=== PATIENT | female | born 1970 | race Caucasian/White ===

== ENCOUNTER 2025-05-18 08:29 | Emergency (ER) | payer MEDICARE, SELFPAY ==
--- OUTSIDE RECORDS SUMMARY | 2022-04-02 06:15 | XMS_ITS | Continuity of Care Document ---
Author Organization Formerly [facility] Address [address] [place] [address] Phone Care Team Providers Care Parish Visitor Name Role Phone Adrianne Edmondson Unavailable Unavailable Allergies, Adverse Reactions, Alerts Substance Reaction Status Criticality No Known Allergies Active No Inform ation Medications Medication Instructions Dosage Effective Dates (start - stop) Status Comments promethazine-DM 6.25 mg-15 mg/5 mL oral syrup take 5 milliliter by oral route every 6 hours as needed for Congestion And Cough 5.00 milliliter - Active Ventolin HFA 90 mcg/actuation aerosol inhaler inhale 2 puff by inhalation route every 4 - 6 hours as needed - Active ibuprofen 800 mg tablet take 1 tablet by oral route 3 times a day as needed for pain; take with food - Active docusate sodium 100 mg capsule take 1 capsule by oral route 2 times a day as needed for constipation - Active Problems Condition Type Effective Dates (start - stop) Clini christian Status Comments No Known Problems Procedures Procedure Date OFFICE/OUTPATIENT VISIT, EST Advance Directives Directive Yes / No Effective Date File Name No Information Encounters Encounter Description Practice Location Reason(s) For Visit Diagnoses Date Provider OFFICE/OUTPAT IENT VISIT, EST Formerly [facility], [address], [place], [id number], [place] tel:[phone] [facility] Follow Up of COVID-19 (chief complaint) COVID-19Educated about COVID-19 virus infection [address] Eve Silver. [address], [id number] [place], [address], [place]. tel: [phone] [facility], [address], [place], [id number], [place] tel: [phone] [facility] COVID-19 (chief complaint) COVID-19Educated about COVID-19 virus infectionContact w and exposure to oth viral communicable diseasesEncounter for screening for cancer of colonEncounter for screening mammogram for cancer of breast 2 Eve Lockettet. [address], [id number] [place], [address], [place]. tel: [phone] [facility]ly [facility], [address], [place], [id number], [place] tel: [phone] [facility] Discuss results from hospital (chief complaint) Positive RPR test 2 Eve Lockettet. [address], [id number] [place], [address], . tel: [phone] [facility], [address], [place], [id number], [place] tel: [phone] [facility] Er follow up (chief complaint) Body mass index (BMI) 36.0-36.9, adultSkin rashHospital discharge follow-upChest pain, unspecified type 2 Eve Francepreet. [address], [id number] [place], [address], [place]. tel: [phone] [facility], [address], [place], [id number], [place] tel: [phone] [facility] Abnormal mammogram of right breast 9 No Information Formerly [facility], [address], [place], [id number], [place] tel: [phone] [facility] Bipolar disorder, unspecifiedCannabis dependence, uncomplicatedBorderline Personality Disorder 9 Jelani Villagomez. [address], [id number] [place], [id number], [place]. tel:+ [facility], [address], [place], [id number], tel: [facility] Abnormal mammogram of right breast 9 No Information [facility], [address], [place], [id number], tel: [facility] Bipolar disorder, unspecifiedCannabis dependence, uncomplicatedBorderline Personality Disorder Jelani Dahlia. [address], [id number] [place], [id number], [place]. tel: [facility], [address], [place], [id number], tel: [facility] Preventive exam (chief complaint)M RI results (chief complaint)f eet pain (chief complaint)f /u mammogram (chief complaint)w eight (chief complaint) Well adult examPlantar fasciitis, bilateralChronic midline low back pain, with sciatica presence unspecifiedAbnormal mammogram of right breastObesity, unspecified classification, unspecified obesity type, unspecified whether serious comorbidity present 9 No Information [facility], [address], [place], [id number], tel: [facility] Bipolar disorder, unspecifiedCannabis dependence, uncomplicatedBorderline Personality Disorder 9 Jelani [place]. [address], [id number] [place], [place], [id number], [place]. tel: [facility], [address], [place], [id number], [place] tel: [facility] Bipolar disorder, unspecifiedCannabis dependence, uncomplicatedBorderline Personality Disorder 9 Jelani [place]. [address], [id number] [place], [id number], [place]. tel: [facility], [address], [place], [id number], tel: [facility] Abnormality of right breast on screening mammogram 9 No Information [facility], [address], [place], [id number], tel: [phone] [facility] Bipolar disorder, unspecifiedCannabis dependence, uncomplicatedBorderline Personality Disorder Nov- [facility]. [address], [id number] [place], [place], [id number], . tel: [facility], [address], [place], [id number], [place] tel: [facility] Bipolar disorder, unspecifiedCannabis dependence, uncomplicatedBorderline Personality Disorder Nov- [facility]. [address], [id number] [place], [place], [id number], [place]. tel: [facility], [address], [place], [id number], tel: [facility] f/u leg and back pain (chief complaint)f /u bipolar (chief complaint) Chronic midline low back pain, with sciatica presence unspecifiedChronic pain of both lower extremitiesBipolar disorder, unspecifiedAbnormal urinalysisHyperlipidemia , unspecified hyperlipidemia typeStress incontinence in femaleBreast cancer screeningCannabis dependence, uncomplicated Nov- 9 No Information [facility], [address], [place], [id number], tel: [facility] Bipolar disorder, unspecifiedCannabis dependence, uncomplicated Nov- [place] Dahlia. [address], [id number] [place], [id number], [place]. tel: [facility], [address], [place], [id number], [place] tel: [facility] Trouble Walking (chief complaint)c onstipation (chief complaint)b ipolar (chief complaint) PolyarthralgiaChronic midline low back pain, with sciatica presence unspecifiedBipolar affective disorder, current episode mixed, current episode severity unspecified Nov 9 No Information [facility], [address], [place], [id number], tel: [phone] [facility] Follow Up of lungs (chief complaint)i gunner toenail (chief complaint) Ingrown toenailChronic obstructive pulmonary disease, unspecified COPD type 7 No Information [facility], [address], [place], [id number], tel: [phone] [facility] trouble breathing (chief complaint) Acute bronchitis with bronchospasmTobacco use disorder No Information Family History Family Member Type Diagnosis Age At Onset No Information Immunizations Vaccine Date Status Comments TDAP refused Source: New Imm unization Record Flu 6mo-64 yrs refused Source: New I mmunization Record Payers Payer name Insurance type Covered green party ID Authoriza tion(s) Medicare [place] [id number] [facility] [id number] Social History Type Description Quantity Date Captured Comments Alcohol Use Details 4 beers rarely Caffeine Use Details soda and tea Occasionally per day Mar Tobacco Use Status Occasional cigarette smoker Smoking Status Heavy tobacco smoker Sex Female Sexual Orientation Straight or heterosexual Gender Identity Oywown-xg-Wmia (FTM)/Transgender Male/Trans Man Chief Complaint And Reason For Visit From encounter dated '04/02/2022 11:15'. Follow Up of COVID-19 (chief complaint). Description: The symptoms are reported as being mild. The symptoms occur daily. The client states the symptoms are acute. COVID-19 :Patient did not take Paxlovid. Patient has headache, cough productive, fatigue. Condition improved but not resolved .Denied any SOB,CP . Patient alert and oriented not in any acute distress. Plan Of Treatment Date Type Action Status Referral Ordered: SCR MAMMO BI INCL CAD Appointment date/timeframe: 06/11/2022 ordered Referral Ordered: Automatic Lump Making Machine Tender (related to Obesity, unspecified classification, unspecified obesity type, unspecified whether serious comorbidity present) ordered Referral Ordered: Referrals: Automatic Lump Making Machine Tender. Consult Appointment date/timeframe: 2 Weeks ordered Referral Ordered: Referrals: Diagnostic Radiology Appointment date/timeframe: 07/13/2019 ordered Referral Ordered: Diagnostic Radiology (related to Abnormality of right breast on screening mammogram) ordered Referral Ordered: Diagnostic Radiology (related to Abnormality of right breast on screening mammogram) ordered Referral Ordered: Referrals: Gynecology. Evaluate and treat Appointment date/timeframe: 01/03/2019 ordered Referral Ordered: Referrals: [facility]. Diagnostic testing Appointment date/timeframe: 12/25/2018 ordered Referral Ordered: Referrals: Diagnostic Radiology. Diagnostic testing Appointment date/timeframe: 12/25/2018 ordered Referral Ordered: X-RAY EXAM OF LOWER SPINE lumbar spine ordered Referral Ordered: Referrals: Podiatry. Evaluate and treat Appointment date/timeframe: 1 Week ordered History Of Present Illness Encounter Date Complaint History Of Prese nt Illness Follow Up of COVID-19 The sympto ms are reported as being mild. The symptoms occur daily. The client states the symptoms are acute. COVID-19 :Patient did not take Paxlovid. Patient has headache, cough productive, fatigue. Condition improved but not resolved .Denied any SOB,CP . Patient alert and oriented not in any acute distress. COVID-19 The symptoms beg an 2 days ago. The symptoms have remained unchanged. The symptoms occur constantly. The client presents with arthralgia, chills, cough, fatigue, fever, headache and pharyngitis. The client does not present with abdominal pain, anorexia, back pain, diarrhea, earache, generalized weakness, lymphadenopathy, myalgia, nausea or vomiting. The client denies change in appetite, change in sleep cycle, constipation, diaphoresis, dizziness, dyspnea, hoarseness, increased abdominal girth, jaundice, lightheadedness, malaise, melena, neck stiffness, pruritus, rash, reduced urine output, somnolence, weight gain and weight loss. Discuss results from [facility] symptoms are reported as being mild. The symptoms occur daily. The client states the symptoms are acute. Lab results : RPR with reflex titer - Reactive Patient is treated with Doxycycline Er follow up Patient was seen in [facility] on 12/30/21 for rash on her body , had hx of Michel mountain fever . Per patient MD treating her syphilis as she recently was with someone with similar rash. Taking medication as ordered . Patient was seen again in [facility] ER on 01/01/22 for SOB and CP. Xray and CT of chest was done and was negative per patient , no records present. Patient denied any CP at this time.Rash has been improving - taking doxycycline as ordered .Requesting records from [facility] MRI results hx of low back p ain with occasional radiation to legsMRI lumbar spine showed multilevel disc dessication but no foraminal and spinal stenosis feet pain hx of pain on bi lateral soles of her feet; worse with first instep, or when she is resting after using her feet for a while; it is burning f/u mammogram screening mammo showed right breast abnormality, diagnostic and US done showed benign lesion but neisha 6 mo f/u; pt denies pain or felt lumps weight difficulty losin g weight and keeping it lost; she is trying to exercise and eat healthier to no avail Preventive exam Last LMP was . Negative for: breast discharge, breast lump(s) and breast pain. Associated symptoms include urinary incontinence. Pertinent negatives include abnormal vaginal bleeding, urinary urgency, vaginal discharge and vaginal itching. Diet Regular.The patient states her exercise frequency is never. The patient does use tobacco. She does drink alcohol. 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, started on her feet and worked its way up her legs and lower backlumbar x-ray normallabs WNL except for mild elevation of TC and urinalysis abnormal - she went to ER shortly after being seen in clinic last visit and was dx UTI and rx'd nitrofurantoin - she is better nowreports stress incontinence, chronic f/u bipolar hx of bipolar, u sed to take lexapro but not currently; seeing now [facility] user and does not plan to quit Trouble Walking pain started on bilateral soles of her feet 9 months ago, then it has spread up to her ankles, then legs, knees, thighs, hips and lower back; no injury; no redness or swelling; she has difficulty walking due to this; she recalls getting a wasp bite on her right upper back that was a big circular swelling prior to all her joint pains; she did not seek treatment constipation Additional infor christian: c/o constipation x 1 wk; not able to go do BM; usually gets diarrhea; no abdominal pain; no blood in stool; no hemorrhoids; feels bloated but no abdominal pain. bipolar hx of bipolar, o n lexapro 40 mg once a day; feels like it is not working anymore; she has not seen or Psych ingrown toenail requesting podia try referral for painful ingrown rigth big toe nail Follow Up of lungs hx of COPD, h ad an exacerbation a week ago and was treated w/ zpak and oral prednisone; she is feeling better; she continues to smoke trouble breathing The symptoms b jhoan 2 weeks ago. productive cough x 2 weeks with chest tightness and wheezing; no feverstates she always gets pneumonia once a yearhx of COPD, only on ventolinsmokes 5-25 cig/daypmhx: allergiesmeds: did not bring bottles/list, but says she is on control, lexapro, ventolin, nasal spray, claritin Instructions Date Instruction Additional Infor christian Symptoms improved bu t not resolved Cough medication as ordered . Encouraged fluids and rest Okay to go back to work on 04/05/22ER precautions discussed RTC as needed. Related to COVID-19 Paxlovid as ordered. ER precautions discussed . Encouraged fluids and rest. Follow up with PCP. Related to COVID-19 Finish treatment as ordered Notify partner Related to Positive RPR test COndition resolved Related to Ch est pain, unspecified type Take medication as o rdered . Condition improved Related to Skin rash Exercise promotion: stretching R elated to Body mass index [BMI] 36.0-36.9, adult Dietary needs education Related to Body mass index [BMI] 36.0-36.9, adult Assessments Type Assessment Date assessment COVID-19 assessment Educated about COVID-19 virus in fection Mental Status Date Cognitive Assessment Orientation - [place] ed to time, place, person, situation.
--- NOTE | ~2025-05-18 | XR_ITS ---
Lumbar spine series Indication: Lower back pain, nontraumatic Comparison: None Technique: 3 views lumbar spine Findings: 5 nonrib-bearing lumbar-type vertebral bodies. No acute fracture. No listhesis. Vertebral bodies normal height. Disc spaces maintained. Minimal degenerative changes. SI joints congruent. Sacrum intact. IMPRESSION: 1. No acute findings. Reviewed, dictated and finalized at location R. IMPRESSION: 1. No acute findings.
[2025-05-18 08:40] VITALS: BP 139/77; PULSE 93; RESP 20; TEMP 36.6; O2SAT 98
--- NOTE | 2025-05-18 10:15 | ED.BACK ---
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 She denies trauma, radiation of pain, fever, chills, nausea, vomiting or urinary symptoms. History of hypertension and sleep apnea Related Data Allergies Allergy/AdvReac Type Severity Reaction Status Date / Time No Known Allergies Allergy Verified 05/18/25 08:46 Review of Systems Review of Systems: All systems reviewed & are unremarkable except as noted in HPI and below Exam Narrative: General appearance: Well-developed, well-nourished Skin: Normal color Head: Normocephalic, nontraumatic Eyes: Clear conjunctiva ENT: Oropharynx normal, ears normal, nose normal Neck: Supple, nontender Chest and respiratory: Airway patent, no respiratory distress, no accessory muscle use Heart: Regular rate/rhythm Abdomen: Soft, nontender, no organomegaly, quiet bowel sounds Vascular: Normal peripheral pulses, normal capillary refill. Musculoskeletal: Severe tenderness across lumbar area, no bruises, no swelling, no rash, limited range of motion at the lumbar area because of pain Neurologic: Alert and oriented ?3, PLATE HANGER is normal as tested, no gross motor deficit Course Vital Signs Vital signs: Vital Signs Temperature 36.6 C 05/18/25 08:40 Pulse Rate 93 05/18/25 08:40 Respiratory Rate 05/18/25 08:40 Blood Pressure 139/77 05/18/25 08:40 Pulse Oximetry 98 05/18/25 08:40 Oxygen Delivery Room Air 05/18/25 08:40 Temperature 36.6 C 05/18/25 08:40 Pulse Rate 93 05/18/25 08:40 Respiratory Rate 05/18/25 08:40 Blood Pressure 139/77 05/18/25 08:40 Pulse Oximetry 98 05/18/25 08:40 Oxygen Delivery Room Air 05/18/25 08:40 MDM - Back Pain/Injury MDM Narrative Medical decision making narrative: 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 No acute findings. Critical Care Time Critical Care Time Critical Care Time: No Discharge Plan Discharge Clinical Impression: Lower back pain Patient Disposition: Home Condition: Stable Instructions: Acute Low Back Pain (ED) Additional Instructions: Return if symptoms are worsening , call your family physician for appointment, take Tylenol as as needed for aches and pain, continue home medications. Massage Heating pad Lower back exercise Patient Language: Citizen Of [place] Prescriptions: New diclofenac sodium 75 mg tablet,delayed release (DR/EC) 75 mg PO BID PRN (Reason: pain) Qty: 14 0RF cyclobenzaprine 10 mg tablet 10 mg PO TID PRN (Reason: muscle spasm) Qty: 20 0RF Follow-up/Referrals: PHYSICIAN NOT ON STAFF,NONSTAFF [Primary Care Provider]
--- OUTSIDE RECORDS SUMMARY | 2025-05-18 11:06 | XMS_ITS | Clinical Summary ---
Author Organization [facility] Address [address] [place] [address] Phone Care Team Providers Care Electricity Trader Name Role Phone JeffreyNima Lyn ANTON Primary Care Provider [phone] Allergies No known active allergies Medications lidocaine (Xylocaine) 2 % solution Apply to the affected dental pain region with a Q-tip every 2 hours as needed for pain. 20 mL 04/27/20 25 Active losartan (Cozaar) 50 mg tablet TAKE 1 TABLET BY MOUTH IN THE MORNING 90 tablet 05/07/20 25 Active losartan (Cozaar) 50 mg tablet TAKE 1 TABLET BY MOUTH IN THE MORNING 90 tablet 01/30/20 25 025 Discontinued amoxicillin-pot clavulanate (Augmentin) 875-125 mg tablet Take 1 tablet by mouth in the morning and at bedtime for 10 days. 20 tablet 04/27/20 25 025 diclofenac (Voltaren) 50 mg EC tablet Take 1 tablet (50 mg) by mouth in the morning, afternoon, and at bedtime for 7 days. Do not crush, chew, or split. 21 tablet 04/27/20 25 025 triamcinolone (Nasacort) 55 mcg nasal inhaler Administer 2 sprays into each nostril in the morning for 10 days. Obtain saline nasal spray spray in each nostril then blow nose before using this medication. 16.5 g 04/27/20 25 025 Active Problems Problem Noted Date Diagnosed Date Other viral warts 03/14/2025 Primary hypertension 11/09/2023 Nonintractable headache 01/13/2023 Resolved Problems Problem Noted Date Diagnosed Date Resolved Date PTSD (post-traumatic stress disorder) 12/13/2022 10/14/2023 Encounters Date Type Department Care Team Description 05/09/2025 Refill [facility] [address] [place] [address] Nima Jeffrey APRN 05/07/2025 Refill [facility] [address] [place] [address] Nima Jeffrey APRN 04/27/2025 2:45 PM CDT Office Visit [facility] [address] [place] [address] Joseph Cole APRN Dental abscess (Primary Dx); Chronic dental pain 03/14/2025 10:15 AM CDT Office Visit [facility] Internal Medicine, Pediatrics and Adult Care [address], [address] [place] [address] Nima Jeffrey APRN Actinic keratosis (Primary Dx); Other viral warts from Last 3 Months Immunizations Immunization Administration Dates Next Due Hep B, Unspecified 02/06/2008,01/02/2008 Hep B, adult 09/30/2008 MMR 12/09/2023 Tdap 12/09/2023 Family History Medical History Relation Name Comments Colon cancer Maternal Grandfather No Known Problems Mother Breast cancer Paternal Grandmother Relation Name Status Comments Maternal Grandfather Mother Paternal Grandmother Social History Tobacco Use Types Packs/Day Years Used Date Smoking Tobacco: Former Cigarettes Passive Smoke Exposure: Past Smokeless Tobacco: Never Tobacco Cessation:Counseling Given: Not Answered Alcohol Use Standard Drinks/Week Comments Not Currently 0 (1 standard drink = 0.6 oz pur e alcohol) [id number] Health Literacy Answer Date Recor ded How often do you need to hav e someone help you when you read instructions, pamphlets, or other written material from your doctor or pharmacy? Never 10/26/2024 [facility] Utilities Answer Date Recorded In the past 12 months has e electric, gas, oil, or water company threatened to shut off services in your home? No 10/26/2024 Social Connection and Isolation Panel Answer Date Recorded In a typical week, how many times do you talk on the phone with family, friends, or neighbors? More than three times a week 04/05/2024 How often do you get togethe r with friends or relatives? Patient declined 04/05/2024 How often do you attend chur ch or adventism services? Never 04/05/2024 Do you belong to any clubs o r organizations such as baptism groups, unions, fraternal or athletic groups, or school groups? No 04/05/2024 How often do you attend meet ings of the clubs or organizations you belong to? Never 04/05/2024 Are you , , di vorced, , never , or living with a partner? 04/05/2024 AUDIT-C Answer Date Recorded Q1: How often do you have a drink containing alc ohol? Monthly or less 10/26/2024 Q2: How many drinks containi ng alcohol do you have on a typical day when you are drinking? 1 or 2 10/26/2024 Q3: How often do you have si x or more drinks on one occasion? Never 10/26/2024 Overall Financial Resource Strain (CARDIA) Answe r Date Recorded How hard is it for you to pa y for the very basics like food, housing, medical care, and heating? Not hard at all 10/26/2024 PHQ-2 Answer Date Recorded Patient Health Questionnaire-2 Score 0 12/11/2024 [facility] - Occupational Stress Questionnaire Answer Date Recorded Do you feel stress - tense, restless, nervous, or anxious, or unable to sleep at night because your mind is troubled all the time - these days? Not at all 10/26/2024 Exercise Vital Sign Answer Date Recorde d On average, how many days pe r week do you engage in moderate to strenuous exercise (like a brisk walk)? 0 days 10/26/2024 On average, how many minutes do you engage in exercise at this level? 0 min 10/26/2024 Hunger Vital Sign Answer Date Recorded Within the past 12 months, y ou worried that your food would run out before you got the money to buy more. Never true 10/26/19 25 Within the past 12 months, t he food you bought just didn't last and you didn't have money to get more. Never true 10/26/2024 [facility] - Transportation Answer Date Re corded In the past 12 months, has l ack of transportation kept you from medical appointments or from getting medications? No 03/2024 In the past 12 months, has l ack of transportation kept you from meetings, work, or from getting things needed for daily living? No 04/05/2024 Housing Stability Vital Sign Answer Jean Carlos e Recorded In the last 12 months, was t here a time when you were not able to pay the mortgage or rent on time? Yes 04/05/2024 In the past 12 months, how m any times have you moved where you were living? 2 04/05/2024 At any time in the past 12 m [facility], were you homeless or living in a chcf (including now)? Yes 04/05/2024 [facility] - Housing/Utilities Answer Date Re corded Do you have housing? Yes 10/26/2024 Are you worried about losing your housing? No 10/26/2024 Within the past 12 months, h ave you or your family members you live with been unable to get utilities (heat, electricity) when it was really needed? No 10/26/2024 [facility] - Transportation Answer Date Record ed In the past 12 months, has l ack of reliable transportation kept you from medical appointments, meetings, work or from getting things needed for daily living? No 10/26/2024 [facility] - Personal Safety Answer Date Recor ded How often does anyone, thais doss family and friends, physically hurt you? Never 10/26/2024 How often does anyone, thais doss family and friends, insult or talk down to you? Never 10/26/2024 How often does anyone, thais doss family and friends, threaten you with harm? Never 10/26/2024 How often does anyone, thais doss family and friends, scream or curse at you? Never 10/26/2024 [facility] - Social Connections Answer Date Re corded If for any reason you need h elp with day-to-day activities such as bathing, preparing meals, shopping, managing finances, etc., do you get the help you need? I don't need any help 10/26/2024 How often do you feel lonely or isolated from those around you? Never 10/26/2024 Comments No Sex and Gender Information Value Date Recorded Sex Assigned at Female 07/05/2022 9:05 PM MANAGER PULMONARY Legal Sex Female 9:05 PM MANAGER PULMONARY Gender Identity Not on file Sexual Orientation Not on file Last Filed Vital Signs Vital Sign Reading Time Taken Comments Blood Pressure 138/72 04/27/2025 2:58 PM CDT Pulse 81 04/27/2025 2:58 PM CDT Temperature 36.6 C (97.9 F) 04/27/2025 2:58 PM CDT Respiratory Rate 14 04/27/2025 2:58 PM CDT Oxygen Saturation 100% 04/27/2025 2:58 PM CDT Inhaled Oxygen Concentration - - Weight 119.8 kg (264 lb 1.8 oz) 04/27/2025 2:58 PM CDT Height 167.6 cm (5' 6) 04/27/2025 2:58 PM CDT Body Mass Index 42.63 04/27/2025 2:58 PM CDT Plan of Treatment Upcoming Encounters Date Type Department Care Team (Late st Contact Info) Description 12/05/2025 7:50 AM CDT Lab [facility] [address] [place] [phone] 12/12/2025 11:00 AM CDT Office Visit [facility] [address] [place] [phone] Nima Jeffrey, SLOANE [address] [place] [phone] Health Maintenance Due Date Last Done Comments CT Colonography 1972 Colonoscopy 1972 Colorectal Cancer Screening 1972 FIT-DNA 1972 FOBT 1972 Sigmoidoscopy 1972 Zoster Vaccines (1 of 2) 01/18/2022 Mammogram 01/01/2025 01/02/2024 COVID-19 Vaccine ( season) 2025 Influenza Vaccine (#1) 2025 Diabetes Screening 12/10/2025 12/10/2024, 0 12/10/2024, 12/09/2023, Additional history exists Depression Screening 12/11/2025 12/11/2024 Annual Wellness Visit (AWV) 01/10/2026 12/11/2024 Pap Smear 12/08/2026 12/09/2023 Cervical Cancer Screening 12/08/2028 HPV/Cotest 12/08/2028 12/09/2023 Lipid Panel 12/10/2029 12/10/2024, 12/09/2023 DTaP/Tdap/Td Vaccines (2 - Td or Tdap) 12/08/2033 12/09/2023 Hepatitis B Vaccines Completed 09/30/2008, 02/06/2008, 01/02/2008 HIV Screening Completed 12/09/2023 Hepatitis C Screening Completed 12/09/2023 MMR Vaccines Completed 12/09/2023 HIB Vaccines Aged Out No longer eligi ble based on patient's age to complete this topic HPV Vaccines Aged Out No longer eligi ble based on patient's age to complete this topic Hepatitis A Vaccines Aged Out No long er eligible based on patient's age to complete this topic IPV Vaccines Aged Out No longer eligi ble based on patient's age to complete this topic Meningococcal B Vaccine Aged Out No l onger eligible based on patient's age to complete this topic Meningococcal Vaccine Aged Out No harris nelida eligible based on patient's age to complete this topic RSV Vaccine: Pediatrics < 20 Months Aged Out No longer eligible based on patient's age to complete this topic Rotavirus Vaccines Aged Out No longer eligible based on patient's age to complete this topic Procedures Procedure Name Priority Date/Time Associated Diagnosis Comments COMPREHENSIVE METABOLIC PANEL Routine 12/10/2024 8:19 AM CDT Hypertension, unspecified type Screening for diabetes mellitus (DM) Iron deficiency anemia, unspecified iron deficiency anemia type LIPID PANEL Routine 12/10/2024 8:19 AM CDT Hypertension, unspecified type Screening for diabetes mellitus (DM) Iron deficiency anemia, unspecified iron deficiency anemia type MA 3D SCREENING BILATERAL Routine 01/02/2024 1:35 PM CDT Encounter for screening mammogram for malignant neoplasm of breast HEPATITIS C ANTIBODY Routine 12/09/2023 9:54 AM CDT History of syphilis Unprotected sexual intercourse HIV 1/2 SCREEN REFLEX TO CONFIRM Routine 12/09/2023 9:54 AM CDT History of syphilis Unprotected sexual intercourse PAP SMEAR AND HPV MRNA E6/E7 REFLEX HPV 16, 18/45 Routine 12/09/2023 9:12 AM CDT Well woman exam with routine gynecological exam from Last 3 Months or Most Recently Relevant to Health Maintenance Results * (ABNORMAL) Lipid Panel (12/10/2024 8:19 AM CDT) Pathologist [facility] Cholesterol 182 <=200 mg/dL LAB CHEMISTRY METHOD 12/10/2024 10:24 AM CDT [facility] Comment: < 200: Low Risk 200 - 239: Moderate Risk > OR = 240: High Risk Triglycerides 166(H) <=150 mg/dL LAB CHEMISTRY METHOD 12/10/2024 10:24 AM CDT [facility] HDL 52 >=50 mg/dL LAB CHEMISTRY METHOD 12/10/2024 10:24 AM CDT [facility] LDL Direct 117(H) <=100 mg/dL LAB CHEMISTRY METHOD 12/10/2024 10:24 AM CDT [facility] Comment: Optimal <100 mg/dl Near optimal/above optimal 100 - 129 mg/dl Borderline high 130 - 159 mg/dl High 160 - 189 mg/dl Very high >190 mg/dl Chol/HDL Ratio 3.5 0.0 - 5.0 LAB CHEMISTRY METHOD 12/10/2024 10:24 AM CDT [facility] Non HDL Cholesterol 130(H) 90 - 129 mg/dL LAB CHEMISTRY METHOD 12/10/2024 10:24 AM CDT [facility] Blood Venous blood specimen / Unknown Venipuncture / Unknown 12/10/2024 8:19 AM CDT 12/10/2024 8:19 AM CDT us Nima Jeffrey APRN LAB BLOOD ORDERABLES Final Re sult [facility] [address] [place] [address], * (ABNORMAL) Comprehensive Metabolic Panel (12/10/2024 8:19 AM [facility]) [facility] Sodium 139 136 - 145 mmol/L LAB CHEMISTRY METHOD 12/10/2024 10:24 AM [facility] Potassium 4.2 3.4 - 5.1 mmol/L LAB CHEMISTRY METHOD 12/10/2024 10:24 AM [facility] Chloride 105 98 - 109 mmol/L LAB CHEMISTRY METHOD 12/10/2024 10:24 AM [facility] CO2 25 20 - 31 mmol/L LAB CHEMISTRY METHOD 12/10/2024 10:24 AM [facility] Anion Gap 9 <=15 mmol/L LAB CHEMISTRY METHOD 12/10/2024 10:24 AM [facility] BUN 16 9 - 23 mg/dL LAB CHEMISTRY METHOD 12/10/2024 10:24 AM [facility] Creatinine 0.75 0.50 - 1.30 mg/dL LAB CHEMISTRY METHOD 12/10/2024 10:24 AM [facility] Glucose 89 74 - 106 mg/dL LAB CHEMISTRY METHOD 12/10/2024 10:24 AM [facility] Calcium 9.5 8.3 - 10.6 mg/dL LAB CHEMISTRY METHOD 12/10/2024 10:24 AM [facility] AST 44(H) <=34 U/L LAB CHEMISTRY METHOD 12/10/2024 10:24 AM [facility] ALT (SGPT) 87(H) 10 - 49 U/L LAB CHEMISTRY METHOD 12/10/2024 10:24 AM [facility] Alkaline Phosphatase 91 46 - 116 U/L LAB CHEMISTRY METHOD 12/10/2024 10:24 AM [facility] Total Protein 7.2 5.7 - 8.2 g/dL LAB CHEMISTRY METHOD 12/10/2024 10:24 AM [facility] Albumin 4.1 3.4 - 5.0 g/dL LAB CHEMISTRY METHOD 12/10/2024 10:24 AM [facility] Total Bilirubin 0.3 0.2 - 1.2 mg/dL LAB CHEMISTRY METHOD 12/10/2024 10:24 AM [facility] eGFR 96 >=60 mL/min/1. 73m*2 LAB CHEMISTRY METHOD 12/10/2024 10:[address] [facility] Comment:Calculation based on the Chronic Kidney Disease Epidemiology Collaboration (CKD-EPI) equation refit without adjustment for race Corrected Calcium LAB CHEMISTRY METHOD 12/10/2024 10:[address] [facility] Comment:Not Calculated Blood Venous blood specimen / Unknown Venipuncture / Unknown 12/10/2024 8:19 AM CDT 12/10/2024 8:19 AM CDT Nima Nicholson Wojciech ANTON LAB BLOOD ORDERABLES Final Re sult [facility] [address] [place] [address], * MA 3D Screening Bilateral (01/02/2024 1:35 PM CDT) Anatomical Region Laterality Modality Breast Bilateral Mammography 01/02/2024 4:37 PM CDT Impressions 01/02/2024 4:39 PM CDT No localizing signs of malignancy. BI-RADS: 2- Benign RECOMMENDATION: Routine Screening Mammogram in 1 Year RISK: Estimated lifetime breast cancer risk: Average (risk between 10%-15%, as per the Tyrer-Cuzick/TITO model) A result letter regarding findings and recommendations will be mailed. Narrative 01/02/2024 4:39 PM CDT MA 3D Screening Bilateral INDICATION: Screening mammogram TECHNIQUE: Bilateral craniocaudal and mediolateral oblique tomosynthesis imaging were obtained and reviewed with computer-aided detection. Synthesized 2D images were generated. COMPARISON: This is a new baseline study. FINDINGS: BREAST DENSITY: A: The breasts are almost entirely fatty. There are no suspicious clusters of microcalcifications. There are no suspicious spiculated masses. There is no evidence of architectural distortion. There is no evidence of skin thickening or nipple retraction. There is no evidence of axillary adenopathy. Procedure Note Jose Eduardo Clark MD - 01/02/2024 MA 3D Screening Bilateral INDICATION: Screening mammogram TECHNIQUE: Bilateral craniocaudal and mediolateral oblique tomosynthesisimaging were obtained and reviewed with computer-aided detection.Synthesized 2D images were generated. COMPARISON: This is a new baseline study. FINDINGS: BREAST DENSITY: A: The breasts are almost entirely fatty. There are no suspicious clusters of microcalcifications. There are nosuspicious spiculated masses. There is no evidence of architecturaldistortion. There is no evidence of skin thickening or nipple retraction.There is no evidence of axillary adenopathy. IMPRESSION: No localizing signs of malignancy. BI-RADS: 2- Benign RECOMMENDATION: Routine Screening Mammogram in 1 Year RISK: Estimated lifetime breast cancer risk: Average (risk ccnhseh09%-15%, as per the Tyrer-Cuzick/TITO model) A result letter regarding findings and recommendations will be mailed. us Myriam HARDY IMG BI PROCEDURES Final Re sult * HIV 1/2 Screen Reflex to Confirm (12/09/2023 9:54 AM CDT) Pathologist [facility] HIV 1&2 Screen Non-React shreyas Non-React shreyas LAB CHEMISTRY METHOD 12/10/2023 12:09 AM CDT [facility] Blood Venous blood specimen / Unknown Venipuncture / Unknown 12/09/2023 9:54 AM CDT 12/09/2023 9:54 AM CDT us Myriam HARDY LAB BLOOD ORDERABLES Final Result [facility] [place] [address], * Hepatitis C Antibody (12/09/2023 9:54 AM CDT) Hepatitis C Ab Non-React shreyas Non-React shreyas LAB CHEMISTRY METHOD 12/10/2023 12:15 AM CDT [facility] Comment: If an equivocal result is reported, it is suggested that a new specimen be collected and the testing repeated on the new specimen. The performance of this assay has not been established for populations of immunocompromised, immunosuppressed, infants, children, or adolescent patients, or with body fluids such as saliva, urine, amniotic fluid, or pleural fluid. Blood Venous blood specimen / Unknown Venipuncture / Unknown 12/09/2023 9:54 AM CDT 12/09/2023 9:54 AM CDT Myriam HARDY LAB BLOOD ORDERABLES Final Result [facility] [address] [facility] [place] [address], * PAP Smear and HPV mRNA E6/E7 Reflex HPV 16, 18/45 (12/09/2023 9:12 AM CDT) PAP Result SEE COMMENT 12/13/2023 12:33 PM CDT [facility] ([facility]) Comment: THINPREP TIS PAP AND HPV mRNA E6/E7 WITH REFLEX TO HPV 16,18/45 Lab: CLINICAL INFORMATION: None given LMP: UNKNOWN prev. Pap: NONE GIVEN prev. Bx: NONE GIVEN SOURCE: Cervix, Endocervix STATEMENT OF ADEQUACY: Satisfactory for evaluation. Endocervical/transformation zone component present. Partially obscuring blood Age and/or menstrual status not provided INTERPRETATION/RESULT: Cytology Results: Negative for intraepithelial lesion or malignancy. COMMENT: This Pap test has been evaluated with computer assisted technology. CHUTE MAN: CHRISTIAN SANDOVAL(ASCP) CT Screening Location: [place] [address] [place] [address] For questions contact Anatomic Pathology Client Services at [phone] EXPLANATORY NOTE: The Pap is a screening test for cervical cancer. It is not a diagnostic test and is subject to false negative and false positive results. It is most reliable when a satisfactory sample, regularly obtained, is submitted with relevant clinical findings and history, and when the Pap result is evaluated along with historic and current clinical information. Lab: [place] HPV mRNA E6/E7 REFLEX HPV 16, 18/45 HPV mRNA E6/E7 Not Detected Reference Range: Not Detected Methodology: Vehicle Safety Inspector-Mediated Amplification This assay detects E6/E7 viral messenger RNA (mRNA) from 14 high-risk HPV types (16,18,31,33,35,39,45,51,52,56,58,59,66,68). Cervical sources are required for HPV testing. If a vaginal source from a patient who has had a total hysterectomy with removal of cervix was submitted, please contact the testing laboratory for alternative testing options. For additional information, please refer to http://education.Watchfinder/faq/GBV365v4 (This link if provided for information/ educational purposes only.) THINPREP TIS PAP AND HPV mRNA E6/E7 WITH REFLEX TO HPV 16,18/45 PERFORMING SITE: [place] [facility] [address] [place] [address] Derrick Car Operator: KALEB CORDON MD, CLIA: [id number] [address] [address] Derrick Car Operator: KALEB CORDON MD, CLIA: [id number] Gynecolgic Cervical / Unknown 9:12 AM CDT 12/09/2023 9:13 AM CDT Myriam HARDY LAB CYTOLOGY ORDERABLES nal Result [facility] ([facility]) from Last 3 Months or Most Recently Relevant to Health Maintenance Insurance [facility] ADVANTAGE Care Teams Electricity Trader Relationship Specialty Start Date End Date Nima Jeffrey APRN [address] [place] [phone] PCP - General Family Medicine 10/26/24
--- OUTSIDE RECORDS SUMMARY | 2025-05-18 11:06 | XMS_ITS | Encounter Summary ---
Author Organization [facility] Care Address [address] [place] [id number] Phone Care Team Providers Care Stock Controller Name Role Phone Nima Jeffrey APRN Primary Care Provider [phone] Reason for Visit * Reason Comments Med Refill Encounter Details Date Type Department Care Team (Late st Contact Info) Description 05/09/2025 Refill [facility] [address] [place] [phone] Nima Jeffrey APRN [address] [facility] [address] [place] [address] Social History Tobacco Use Types Packs/Day Years Used Date Smoking Tobacco: Former Cigarettes Passive Smoke Exposure: Past Smokeless Tobacco: Never Alcohol Use Standard Drinks/Week Comments Not Currently 0 (1 standard drink = 0.6 oz pur e alcohol) B1300 Health Literacy Answer Date Recor ded How often do you need to hav e someone help you when you read instructions, pamphlets, or other written material from your doctor or pharmacy? Never 10/26/2024 [facility] Utilities Answer Date Recorded In the past 12 months has th [employer], gas, oil, or water [employer] threatened to shut off services in your home? No 10/26/2024 Social Connection and Isolation Panel Answer Date Recorded In a typical week, how many times do you talk on the phone with family, friends, or neighbors? More than three times a week 04/05/2024 How often do you get togethe r with friends or relatives? Patient declined 04/05/2024 How often do you attend [facility] or hoahaoism services? Never 04/05/2024 Do you belong to any clubs o r organizations such as gnosticism groups, unions, fraternal or athletic groups, or [...] Recorded Patient Health Questionnaire-2 Score 0 12/11/2024 [facility] - Occupational Stress Questionnaire Answer Date [...] any time in the past 12 m [facility], were you homeless or living in a care home (including now)? Yes 04/05/2024 [facility] - Housing/Utilities Answer Date Re corded Do you have housing? Yes 10/26/2024 Are you worried about losing your housing? No 10/26/2024 Within the past 12 months, h ave you or your family members you live with been unable to get utilities (heat, electricity) when it was really needed? No 10/26/2024 [facility] - Transportation Answer Date Record ed In the past 12 months, has l ack of reliable transportation kept you from medical appointments, meetings, work or from getting things needed for daily living? No 10/26/2024 [facility] - Personal Safety Answer Date Recor ded [...] scream or curse at you? Never 10/26/2024 [facility] - Social Connections Answer Date Re corded [...] Sex Assigned at Female 07/05/2022 9:05 PM [employer] Legal Sex Female 9:05 PM [employer] Gender Identity Not on file Sexual Orientation Not on file documented as of this encounter Plan of Treatment Upcoming Encounters Date Type Department Care Team (Late st Contact Info) Description 12/05/2025 7:50 AM CDT Lab [facility] Internal Medicine, Pediatrics [facility] [address] [place] [phone] 12/12/2025 11:00 AM CDT Office Visit [facility] Medicine[facility] Pediatrics [facility] [address] [place] [phone] Nima Jeffrey APRN [address] [place] [phone] (Work) documented as of this encounter Visit Diagnoses Not on filedocumented in this encounter Care Teams Stock Controller Relationship Specialty Start Date End Date Nima Jeffrey APRN [address] [place] [phone] (Work) PCP - General Family Medicine 10/26/24 documented as of this encounter
[2025-05-18] MEDS: KETOROLAC (*BKC) 60 MG/2 ML VIAL IM (11:32)
[2025-05-18 11:46] VITALS: BP 147/71; PULSE 79; RESP 18; TEMP 36.4; O2SAT 98
== END 2025-05-18 11:48 | disposition home or self-care (01) ==
PROVIDERS: Emergency Provider Emergency Medicine
DX: M54.50 Low back pain, unspecified (principal); I10 Essential (primary) hypertension; G47.30 Sleep apnea, unspecified
CPT/HCPCS: 72100; 96372; 99283; J1885